=== PATIENT | male | born 1965 | race Caucasian/White ===

== ENCOUNTER 2022-02-14 11:20 | Outpatient (NON) | payer BC, SELFPAY | END 2022-02-14 11:21 | disposition home or self-care (01) | LOC: ANHLAB 11:25 | PROVIDERS: Visit Provider Nurse Practitioner | DX: D22.5 Melanocytic nevi of trunk (principal) | CPT/HCPCS: 88305 ==

== ENCOUNTER 2024-05-18 10:01 | Emergency (ER) | payer BC, SELFPAY ==
[2024-05-18 10:10] VITALS: BP 111/73; PULSE 69; RESP 18; TEMP 36.6; O2SAT 99
--- NOTE | 2024-05-18 12:12 | ED.GENADULT ---
HPI - General Adult General Chief complaint: Anxiety Stated complaint: anxiety Time Seen by Provider: 05/18/24 12:06 Source: patient Mode of arrival: EMS Limitations: no limitations History of Present Illness HPI narrative: 58 years old white male came to the ED feeling stressed and anxious, run out of clonazepam and Adderall 5 days ago. He denies any suicidal or homicidal ideation. Related Data Allergies Allergy/AdvReac Type Severity Reaction Status Date / Time No Known Allergies Allergy Verified 02/20/24 11:22 Review of Systems Review of Systems: All systems reviewed & are unremarkable except as noted in HPI and below PMFSH Past Medical History Medical History Ureteral stone Viral meningitis 1998 Persistent disorder of initiating or maintaining sleep Major depressive disorder, recurrent, mild Attention-deficit hyperactivity disorder, other type Acute sinusitis, unspecified Dysplastic nevus right upper back Drug withdrawal headache adderall Family History Family History Mother Family history of thyroid disease Family history of mental disorder Hypertension Father Depression Family history of cardiovascular disease Social History Social History Smoking status: Never smoker Second hand tobacco smoke exposure: No Alcohol intake: current Alcohol use details: Pt stated that he rarely drinks. He stated that he has about 1 drink every couple of weeks Substance use: never Substance use type: does not use Do You Feel Safe in your Home?: Yes Lack of Transportation: No Lack of Food: Never True Current Housing: I Have Housing Concerned About Future Housing: No Difficulty Paying Gas/Electric Bills: No Difficulty Paying for Meds: No Currently Unemployed: No Education: Bachelor's Degree Difficulty w/ Childcare or Family Care: No Living arrangements: with family Occupation/Education: occupation Additional occupation/education comments: Unit Educator Gender identity (if verbalized by the patient): Male Exam Narrative: General appearance: Well-developed, well-nourished, anxious, restless Skin: Normal color Head: Normocephalic, nontraumatic Eyes: Clear conjunctiva ENT: Oropharynx normal, ears normal, nose normal Neck: Supple, nontender Chest and respiratory: Airway patent, no respiratory distress, no accessory muscle use Heart: Regular rate/rhythm Abdomen: Soft, nontender, no organomegaly, quiet bowel sounds Vascular: Normal peripheral pulses, normal capillary refill. 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 Pisano office states that a refill of clonazepam and Adderall was send to the pharmacy few minutes ago for the patient to go pick it up today. Date: 05/18/24 Vital Signs Vital signs: Vital Signs Temperature 36.6 C 05/18/24 10:10 Pulse Rate 69 05/18/24 10:10 Respiratory Rate 18 05/18/24 10:10 Blood Pressure 111/73 05/18/24 10:10 Pulse Oximetry 99 05/18/24 10:10 Oxygen Delivery Room Air 05/18/24 10:10 Temperature 36.6 C 05/18/24 10:10 Pulse Rate 83 05/18/24 12:52 Respiratory Rate 20 05/18/24 12:52 Blood Pressure 105/77 05/18/24 12:52 Pulse Oximetry 94 05/18/24 12:52 Oxygen Delivery Room Air 05/18/24 10:10 Medical Decision Making MDM Narrative Medical decision making narrative: Patient presents with anxiety like symptoms Vital signs are stable Physical examination showing restless station Patient denies any suicidal or homicidal ideation Adderall and clonazepam refill was done by his family physician office and patient planning to get it today. Patient received 1 mg of Ativan IV prior to discharge Vital Signs Vital Signs: Vital Signs Temperature 36.6 C 05/18/24 10:10 Pulse Rate 69 05/18/24 10:10 Respiratory Rate 18 05/18/24 10:10 Blood Pressure 111/73 05/18/24 10:10 Pulse Oximetry 99 05/18/24 10:10 Oxygen Delivery Room Air 05/18/24 10:10 Temperature 36.6 C 05/18/24 10:10 Pulse Rate 83 05/18/24 12:52 Respiratory Rate 20 05/18/24 12:52 Blood Pressure 105/77 05/18/24 12:52 Pulse Oximetry 94 05/18/24 12:52 Oxygen Delivery Room Air 05/18/24 10:10 Critical Care Time Critical Care Time Critical Care Time: No Discharge Plan Discharge Clinical Impression: Acute anxiety, Medicine refill Patient Disposition: Home, Self-Care Condition: Improved Instructions: Anxiety (ED), Medicine Refill (ED) Additional Instructions: Return if symptoms are worsening , call your family physician for appointment, take Tylenol as as needed for aches and pain, continue home medications. There is a refill prescription of your home medications at the pharmacy right now. Patient Language: Citizen Of [place] Prescriptions: No Action paroxetine HCl 40 mg tablet 20 mg PO BID Qty: 180 1RF dextroamphetamine-amphetamine 20 mg tablet 20 mg PO TID Qty: 90 0RF Rx Instructions: May armodafinil 250 mg tablet 250 mg PO QAM Qty: 30 3RF clonazepam 0.5 mg tablet 0.5 mg PO BID Qty: 60 2RF dextroamphetamine-amphetamine 20 mg tablet 20 mg PO TID Qty: 90 0RF Follow-up/Referrals: Beth Pisano MD [Primary Care Provider] -
[2024-05-18] MEDS: LORazepam INJ (*CRX) 2 MG/ML VIAL 1 MG IV PUSH (12:49)
[2024-05-18 12:52] VITALS: BP 105/77; PULSE 83; RESP 20; O2SAT 94
== END 2024-05-18 12:58 | disposition home or self-care (01) ==
PROVIDERS: Emergency Provider Emergency Medicine; PCP Family Medicine
DX: F41.9 Anxiety disorder, unspecified (principal); Z76.0 Encounter for issue of repeat prescription; F90.9 Attention-deficit hyperactivity disorder, unspecified type
CPT/HCPCS: 96374; 99284; J2060